=== PATIENT | male | born 1955 ===

== ENCOUNTER 2017-08-26 11:49 | Inpatient (IN) | payer BC ==
[2017-08-26 12:52] LABS: BASO # 0.1 K/uL (0.0-0.2); BASO % 1.2 % (0.0-2.0); EOS % 23.9 % (0.0-4.0); LYMPH # 1.1 K/uL (1.0-4.3); LYMPH % 13.2 % (20.0-40.0); MEAN CELL VOLUME 90.5 fl (80.0-94.0); MEAN CORPUSCULAR HEMOGLOBIN 30.3 pg (27.0-31.0); MEAN CORPUSCULAR HGB CONC 33.5 g/dL (33.0-37.0); MEAN PLATELET VOLUME 8.2 fl (7.2-11.7); MONO # 0.3 K/uL (0.0-0.8); MONO % 3.9 % (0.0-10.0); NEUT # 4.8 K/uL (1.8-7.0); NEUT % 57.8 % (50.0-75.0); PLATELET COUNT 260 K/uL (130-400); RBC 4.61 Mil/uL (4.40-5.90); RED CELL DISTRIBUTION WIDTH 13.9 % (11.5-14.5); WHITE BLOOD COUNT 8.3 K/uL (4.8-10.8)
[2017-08-26 13:04] LABS: ALB/GLOB RATIO 1.1 (1.0-2.1); ALBUMIN 3.8 g/dL (3.5-5.0); ALT/SGPT 32 U/L (21-72); AST/SGOT 27 U/L (17-59); BLOOD UREA NITROGEN 25 mg/dl (9-20); GFR AFRICAN-AMERICAN 57; GFR NON-AFRICAN AMERICAN 47
[2017-08-26 14:00] LABS: BANDS 1 % (0-2); BASOPHIL 1 % (0-2); EOSINOPHIL 26 % (0-7); LYMPHOCYTE 10 % (20-50); MONOCYTE 3 % (0-10); NEUTROPHIL 59 % (42-75); PLATELET ESTIMATE NORMAL (NORMAL); TOTAL CELLS COUNTED 100
--- NOTE | 2017-08-26 14:11 | CT ---
PROCEDURE: CT HEAD WITHOUT CONTRAST. HISTORY: syncope COMPARISON: None available. TECHNIQUE: Axial computed tomography images were obtained through the head/brain without intravenous contrast. Radiation dose: Total exam DLP = 835.36 mGy-cm. This CT exam was performed using one or more of the following dose reduction techniques: Automated exposure control, adjustment of the mA and/or kV according to patient size, and/or use of iterative reconstruction technique. FINDINGS: HEMORRHAGE: No intracranial hemorrhage. BRAIN: No mass effect or edema. No significant atrophy. Mild patchy periventricular and deep white matter lucency consistent with microvascular white matter ischemic change. No evidence of acute infarct. VENTRICLES: Unremarkable. No hydrocephalus. CALVARIUM: Unremarkable. PARANASAL SINUSES: Unremarkable as visualized. No significant inflammatory changes. MASTOID AIR CELLS: Unremarkable as visualized. No inflammatory changes. OTHER FINDINGS: None. IMPRESSION: No intracranial mass, hemorrhage or evidence of acute infarct. Mild chronic white matter ischemic change.
--- NOTE | 2017-08-26 14:39 | ED PDOC ---
Syncope/Near Syncope/Dizziness Time Seen by Provider: 08/26/17 12:27 Chief Complaint (Nursing): Syncope Chief Complaint (Provider): Syncope History Per: Patient History/Exam Limitations: no limitations Onset/Duration Of Symptoms: Days (08/26/17) Current Symptoms Are (Timing): Better Number Of Syncopal Episodes: 1 Additional Complaint(s): 62 year old male with a past medical history of hypertension presents to the ED with son complaining for syncope episode at home. Son states he heard a thump in the kitchen and saw the patient passed out for approximately one minute. Reports the patients eyes were open but patient was not responding and had bit his tongue. Patient states after taking blood pressure medication, he felt dizzy. Denies shortness of breath. PMD: Alissa Mejia MD Past Medical History Reviewed: Historical Data, Nursing Documentation, Vital Signs Vital Signs: Last Vital Signs Temp 98.1 F 08/26/17 11:58 Pulse 56 L 08/26/17 11:58 Resp 18 08/26/17 11:58 BP 128/81 08/26/17 11:58 Pulse Ox 99 08/26/17 11:58 - Medical History PMH: HTN, Hypercholesterolemia - Family History Family History: States: Unknown Family Hx - Home Medications Home Medications: Ambulatory Orders Medication Instructions Recorded amLODIPine [Norvasc] 10 mg PO DAILY 08/26/17 - Allergies Allergies/Adverse Reactions: Allergies Allergy/AdvReac Type Severity Reaction Status Date / Time No Known Allergies Allergy Verified 08/26/17 11:58 Review of Systems ROS Statement: Except As Marked, All Systems Reviewed And Found Negative Musculoskeletal: Positive for: Neck Pain Neurological: Positive for: Dizziness Physical Exam - Reviewed Nursing Documentation Reviewed: Yes Vital Signs Reviewed: Yes - Physical Exam Appears: Positive for: Well, Non-toxic, No Acute Distress Head Exam: Positive for: ATRAUMATIC, NORMAL INSPECTION, NORMOCEPHALIC Skin: Positive for: Normal Color, Warm, Dry Eye Exam: Positive for: EOMI, Normal appearance, PERRL ENT: Positive for: Normal ENT Inspection Neck: Positive for: Normal, Painless ROM, Supple. Negative for: Decreased ROM Cardiovascular/Chest: Positive for: Regular Rate, Rhythm. Negative for: Murmur Respiratory: Positive for: Normal Breath Sounds. Negative for: Decreased Breath Sounds, Accessory Muscle Use, Respiratory Distress Gastrointestinal/Abdominal: Positive for: Normal Exam, Bowel Sounds, Soft. Negative for: Tenderness, Guarding, Rebound Back: Positive for: Normal Inspection. Negative for: L CVA Tenderness, R CVA Tenderness Extremity: Positive for: Normal ROM. Negative for: Tenderness, Pedal Edema, Deformity Neurologic/Psych: Positive for: Alert, Oriented (x3). Negative for: Motor/ Sensory Deficits - Laboratory Results Result Diagrams: 08/26/17 12:35 08/26/17 12:35 - ECG ECG: Positive for: Interpreted By Me, Viewed By Me ECG Rhythm: Positive for: Sinus Bradycardia, Right Bundle Branch Block Rate: 56 O2 Sat by Pulse Oximetry: 99 (RA) Pulse Ox Interpretation: Normal Medical Decision Making Medical Decision Making: Time: 1235 Initial Plan: --Head w/o Contrast [CT] --CMP --Troponin I --CBC w/ Differential --Reevaluation EKG results demonstrate 56bpm, right bundle branch block, and bradycardia Time:1409 PROCEDURE: CT HEAD WITHOUT CONTRAST. FINDINGS: HEMORRHAGE: No intracranial hemorrhage. BRAIN: No mass effect or edema. No significant atrophy. Mild patchy periventricular and deep white matter lucency consistent with microvascular white matter ischemic change. No evidence of acute infarct. VENTRICLES: Unremarkable. No hydrocephalus. CALVARIUM: Unremarkable. PARANASAL SINUSES: Unremarkable as visualized. No significant inflammatory changes. MASTOID AIR CELLS: Unremarkable as visualized. No inflammatory changes. OTHER FINDINGS: None. IMPRESSION: No intracranial mass, hemorrhage or evidence of acute infarct. Mild chronic white matter ischemic change. Time: [address] Wetzel and Dr. Salomon's patient admitted to Dr. Wetzel. Time: 163 --Chest x-ray FINDINGS: LUNGS: No active pulmonary disease. PLEURA: No significant pleural effusion identified, no pneumothorax apparent. CARDIOVASCULAR: Normal. OSSEOUS STRUCTURES: Thoracic spondylosis. Bilateral shoulder arthrosis. VISUALIZED UPPER ABDOMEN: Normal. OTHER FINDINGS: None. IMPRESSION: No active disease. Scribe Attestation: Documented by Terell Baeza, acting as a scribe for Simone Bashir MD Provider Scribe Attestation: All medical record entries made by the Scribe were at my direction and personally dictated by me. I have reviewed the chart and agree that the record accurately reflects my personal performance of the history, physical exam, medical decision making, and the department course for this patient. I have also personally directed, reviewed, and agree with the discharge instructions and disposition. Disposition - Patient ED Disposition Is Patient to be Admitted: Yes - Disposition Disposition Time: 16:03 Condition: STABLE
--- NOTE | 2017-08-26 16:34 | RAD ---
HISTORY: syncope COMPARISON: No prior. FINDINGS: LUNGS: No active pulmonary disease. PLEURA: No significant pleural effusion identified, no pneumothorax apparent. CARDIOVASCULAR: Normal. OSSEOUS STRUCTURES: Thoracic spondylosis. Bilateral shoulder arthrosis. VISUALIZED UPPER ABDOMEN: Normal. OTHER FINDINGS: None. IMPRESSION: No active disease.
[2017-08-27 06:45] LABS: HEMOGLOBIN 14.2 g/dL (12.0-18.0); MEAN CELL VOLUME 89.1 fl (80.0-94.0); MEAN CORPUSCULAR HEMOGLOBIN 30.3 pg (27.0-31.0); MEAN CORPUSCULAR HGB CONC 33.9 g/dL (33.0-37.0); RBC 4.69 Mil/uL (4.40-5.90); RED CELL DISTRIBUTION WIDTH 13.8 % (11.5-14.5); WHITE BLOOD COUNT 8.8 K/uL (4.8-10.8)
[2017-08-27 06:58] LABS: ALBUMIN 3.7 g/dL (3.5-5.0)
[2017-08-27 07:09] LABS: T4 6.11 ug/dl (5.5-11.0)
--- NOTE | 2017-08-27 07:11 | CP.PCM.CON ---
History of Present Illness - History of Present Illness History of Present Illness: Consultation for evaluation of syncope HPI: 62-year-old male with history of hypertension who presented with complaints of episode of near syncope after taking his blood pressure medications according to the patient he has noted to have a similar episode in the past patient took his blood pressure blood pressure medication early in the morning and 45 minutes later while he was washing his dishes started feeling dizzy had a dark vision and passed out. Apparently he bit his tongue had similar episodes in the past and attributed to his secondary to over medications. Prior to episode of syncope he denied having any prodromal symptoms denies any chest pain shortness of breath palpitations. Past medical history as stated above family history noncontributory social history denies history of smoking alcohol or illicit drug use allergies no known drug allergies. Review of Systems - Review of Systems Systems not reviewed;Unavailable: Acuity of Condition - Constitutional Constitutional: As Per HPI - EENT Eyes: As Per HPI Ears: As Per HPI Nose/Mouth/Throat: As Per HPI - Cardiovascular Cardiovascular: As Per HPI - Respiratory Respiratory: As Per HPI - Gastrointestinal Gastrointestinal: As Per HPI - Genitourinary Genitourinary: As Per HPI - Reproductive: Male Reproductive:Male: As Per HPI - Musculoskeletal Musculoskeletal: As Per HPI - Integumentary Integumentary: As Per HPI - Neurological Neurological: As Per HPI - Psychiatric Psychiatric: As Per HPI - Endocrine Endocrine: As Per HPI - Hematologic/Lymphatic Hematologic: As Per HPI Past Patient History - Past Medical History & Family History Past Medical History?: Yes - Past Social History Smoking Status: Former Smoker - CARDIAC Hx Hypercholesterolemia: Yes Hx Hypertension: Yes - NEUROLOGICAL Hx Syncope: Yes (Today) - HEMATOLOGICAL/ONCOLOGICAL Hx AIDS: No Hx Human Immunodeficiency Virus (HIV): No - MUSCULOSKELETAL/RHEUMATOLOGICAL Hx Arthritis: Yes Hx Falls: Yes - PSYCHIATRIC Hx Substance Use: No - SURGICAL HISTORY Hx Arthroscopy: Yes - ANESTHESIA Hx Anesthesia: Yes Hx Anesthesia Reactions: No Hx Malignant Hyperthermia: No Meds Allergies/Adverse Reactions: Allergies Allergy/AdvReac Type Severity Reaction Status Date / Time No Known Allergies Allergy Verified 08/26/17 11:58 - Medications Medications: Current Medications Amlodipine Besylate (Norvasc) 10 mg PO DAILY [facility] Aspirin (Aspirin Chewable) 81 mg PO DAILY [facility] Atorvastatin Calcium (Lipitor) 40 mg PO DAILY [facility] Carvedilol (Coreg) 25 mg PO Q12 [facility] Last Admin: 08/26/17 20:57 Dose: 25 mg Enoxaparin Sodium (Lovenox) 40 mg SC DAILY [facility] PRN Reason: Protocol Physical Exam - Constitutional Appears: Well - Head Exam Head Exam: ATRAUMATIC, NORMAL INSPECTION, NORMOCEPHALIC - Eye Exam Eye Exam: EOMI, Normal appearance, PERRL Pupil Exam: NORMAL ACCOMODATION, PERRL - ENT Exam ENT Exam: Mucous Membranes Moist, Normal Exam - Neck Exam Neck exam: Positive for: Normal Inspection - Respiratory Exam Respiratory Exam: Clear to Auscultation Bilateral, NORMAL BREATHING PATTERN - Cardiovascular Exam Cardiovascular Exam: REGULAR RHYTHM - GI/Abdominal Exam GI & Abdominal Exam: Normal Bowel Sounds, Soft. absent: Tenderness - Extremities Exam Extremities exam: Positive for: normal inspection - Back Exam Back exam: NORMAL INSPECTION - Neurological Exam Neurological exam: Alert, CN II-XII Intact, Normal Gait, Oriented x3, Reflexes Normal - Psychiatric Exam Psychiatric exam: Normal Affect, Normal Mood - Skin Skin Exam: Dry, Intact, Normal Color, Warm Results - Vital Signs Recent Vital Signs: Last Vital Signs Temp 98.6 F 08/27/17 05:00 Pulse 57 L 08/27/17 05:00 Resp 18 08/27/17 05:00 BP 176/96 H 08/27/17 05:00 Pulse Ox 98 08/27/17 05:00 - Labs Result Diagrams: 08/28/17 04:01 08/28/17 04:01 Labs: Laboratory Results - last 24 hr 08/26/17 08/26/17 08/26/17 12:17 12:35 12:35 WBC 8.3 RBC 4.61 Hgb 14.0 Hct 41.7 MCV 90.5 MCH 30.3 MCHC 33.5 RDW 13.9 Plt Count 260 MPV 8.2 Neut % (Auto) 57.8 Lymph % (Auto) 13.2 L [place] % (Auto) 3.9 Eos % (Auto) 23.9 H Baso % (Auto) 1.2 Neut # (Auto) 4.8 Lymph # (Auto) 1.1 [place] # (Auto) 0.3 Eos # (Auto) 2.0 H Baso # (Auto) 0.1 Neutrophils % (Manual) 59 Band Neutrophils % 1 Lymphocytes % (Manual) 10 L Monocytes % (Manual) 3 Eosinophils % (Manual) 26 H Basophils % (Manual) 1 Platelet Estimate Normal RBC Morphology Normal Sodium 141 Potassium 3.5 L Chloride 104 Carbon Dioxide 21 L Anion Gap 20 BUN 25 H Creatinine 1.5 Est GFR ( Amer) 57 Est GFR (Non-Af Amer) 47 POC Glucose (mg/dL) 160 H Random Glucose 129 H Calcium 9.0 Total Bilirubin 0.6 AST 27 ALT 32 Alkaline Phosphatase 97 Troponin I < 0.0120 Total Protein 7.3 Albumin 3.8 Globulin 3.5 Albumin/Globulin Ratio 1.1 Triglycerides Cholesterol LDL Cholesterol Direct HDL Cholesterol Thyroxine (T4) 08/27/17 08/27/17 05:30 05:30 WBC 8.8 RBC 4.69 Hgb 14.2 Hct 41.8 MCV 89.1 MCH 30.3 MCHC 33.9 RDW 13.8 Plt Count 255 MPV Neut % (Auto) Lymph % (Auto) [place] % (Auto) Eos % (Auto) Baso % (Auto) Neut # (Auto) Lymph # (Auto) [place] # (Auto) Eos # (Auto) Baso # (Auto) Neutrophils % (Manual) Band Neutrophils % Lymphocytes % (Manual) Monocytes % (Manual) Eosinophils % (Manual) Basophils % (Manual) Platelet Estimate RBC Morphology Sodium 141 Potassium 3.4 L Chloride 102 Carbon Dioxide 26 Anion Gap 16 BUN 27 H Creatinine 1.6 H Est GFR ( Amer) 53 Est GFR (Non-Af Amer) 44 POC Glucose (mg/dL) Random Glucose 94 Calcium 9.0 Total Bilirubin 0.5 AST 24 ALT 32 Alkaline Phosphatase 101 Troponin I Total Protein 7.3 Albumin 3.7 Globulin 3.6 Albumin/Globulin Ratio 1.0 Triglycerides 148 Cholesterol 238 H LDL Cholesterol Direct 168 H HDL Cholesterol 30 Thyroxine (T4) 6.11 Assessment & Plan (1) Syncope Assessment and Plan: Echo cardotids telemetry JACKIE etiology ? vasovagal vs. med induced Status: Acute
[2017-08-27 07:23] LABS: T3 0.86 nmol/L (1.49-2.60)
--- NOTE | 2017-08-27 08:23 | CP.PCM.HP ---
History of Present Illness - History of Present Illness History of Present Illness: 62 yo, m , PMhx/o HTN, HLD presents c/o syncope at home. Patient report he took his BP medications early 9 am and about 45 min after while he was doing the dishes in the kitchen, he sudden started feeling dizziness, dark vision and passed out. Syncope witnessed by his son, it lasted about 1 min. Reports the patients eyes were open but patient was not responding and had bit his tongue. Patient denies subsequent weakness, slurred speech, facial palsy, confusion, seizure activity, sphincter incontinence, somnolence. He denies prior to syncope , palpitation, chest pain, SOB, vomiting, diarrhea, dehydration. Reports similar events in the past, but not syncope before. Reports hx/o anxiety, no emotional distress related with syncope. Does not remember BP medications he is taking. Patient seen and examined with Dr Wetzel. Patient noted with uncontrolled BP. Asymptomatic. Amlodipine increased to 10 mg daily PMD: Alissa Mejia MD Present on Admission - Present on Admission Any Indicators Present on Admission: No History of DVT/PE: No History of Uncontrolled Diabetes: No Urinary Catheter: No Review of Systems - Review of Systems All systems: reviewed and no additional remarkable complaints except - Cardiovascular Cardiovascular: As Per HPI - Neurological Neurological: Dizziness Past Patient History - Past Medical History & Family History Past Medical History?: Yes - Past Social History Smoking Status: Former Smoker - CARDIAC Hx Hypercholesterolemia: Yes Hx Hypertension: Yes - NEUROLOGICAL Hx Syncope: Yes (Today) - HEMATOLOGICAL/ONCOLOGICAL Hx AIDS: No Hx Human Immunodeficiency Virus (HIV): No - MUSCULOSKELETAL/RHEUMATOLOGICAL Hx Arthritis: Yes Hx Falls: Yes - PSYCHIATRIC Hx Substance Use: No - SURGICAL HISTORY Hx Arthroscopy: Yes - ANESTHESIA Hx Anesthesia: Yes Hx Anesthesia Reactions: No Hx Malignant Hyperthermia: No Meds Allergies/Adverse Reactions: Allergies Allergy/AdvReac Type Severity Reaction Status Date / Time No Known Allergies Allergy Verified 08/26/17 11:58 Physical Exam - Constitutional Appears: Non-toxic, No Acute Distress - Head Exam Head Exam: ATRAUMATIC, NORMOCEPHALIC - Eye Exam Eye Exam: Normal appearance - ENT Exam ENT Exam: Mucous Membranes Moist - Respiratory Exam Respiratory Exam: Clear to Auscultation Bilateral. absent: Rales, Rhonchi, Wheezes - Cardiovascular Exam Cardiovascular Exam: REGULAR RHYTHM, +S1, +S2 - GI/Abdominal Exam GI & Abdominal Exam: Normal Bowel Sounds, Soft. absent: Tenderness - Extremities Exam Extremities exam: Positive for: normal inspection. Negative for: pedal edema - Back Exam Back exam: NORMAL INSPECTION - Neurological Exam Neurological exam: Alert, Oriented x3 - Psychiatric Exam Psychiatric exam: Normal Affect, Normal Mood - Skin Skin Exam: Intact Results - Vital Signs Recent Vital Signs: Last Vital Signs Temp 97.6 F 08/27/17 07:35 Pulse 54 L 08/27/17 08:10 Resp 18 08/27/17 07:35 BP 186/95 H 08/27/17 08:10 Pulse Ox 97 08/27/17 07:35 - Labs Result Diagrams: 08/27/17 05:30 08/27/17 05:30 Labs: Laboratory Results - last 24 hr 08/26/17 08/26/17 08/26/17 12:17 12:35 12:35 WBC 8.3 RBC 4.61 Hgb 14.0 Hct 41.7 MCV 90.5 MCH 30.3 MCHC 33.5 RDW 13.9 Plt Count 260 MPV 8.2 Neut % (Auto) 57.8 Lymph % (Auto) 13.2 L [place] % (Auto) 3.9 Eos % (Auto) 23.9 H Baso % (Auto) 1.2 Neut # (Auto) 4.8 Lymph # (Auto) 1.1 [place] # (Auto) 0.3 Eos # (Auto) 2.0 H Baso # (Auto) 0.1 Neutrophils % (Manual) 59 Band Neutrophils % 1 Lymphocytes % (Manual) 10 L Monocytes % (Manual) 3 Eosinophils % (Manual) 26 H Basophils % (Manual) 1 Platelet Estimate Normal RBC Morphology Normal Sodium 141 Potassium 3.5 L Chloride 104 Carbon Dioxide 21 L Anion Gap 20 BUN 25 H Creatinine 1.5 Est GFR ( Amer) 57 Est GFR (Non-Af Amer) 47 POC Glucose (mg/dL) 160 H Random Glucose 129 H Calcium 9.0 Total Bilirubin 0.6 AST 27 ALT 32 Alkaline Phosphatase 97 Troponin I < 0.0120 Total Protein 7.3 Albumin 3.8 Globulin 3.5 Albumin/Globulin Ratio 1.1 Triglycerides Cholesterol LDL Cholesterol Direct HDL Cholesterol Vitamin B12 Thyroxine (T4) Total T3 TSH 3rd Generation 08/27/17 08/27/17 05:30 05:30 WBC 8.8 RBC 4.69 Hgb 14.2 Hct 41.8 MCV 89.1 MCH 30.3 MCHC 33.9 RDW 13.8 Plt Count 255 MPV Neut % (Auto) Lymph % (Auto) [place] % (Auto) Eos % (Auto) Baso % (Auto) Neut # (Auto) Lymph # (Auto) [place] # (Auto) Eos # (Auto) Baso # (Auto) Neutrophils % (Manual) Band Neutrophils % Lymphocytes % (Manual) Monocytes % (Manual) Eosinophils % (Manual) Basophils % (Manual) Platelet Estimate RBC Morphology Sodium 141 Potassium 3.4 L Chloride 102 Carbon Dioxide 26 Anion Gap 16 BUN 27 H Creatinine 1.6 H Est GFR ( Amer) 53 Est GFR (Non-Af Amer) 44 POC Glucose (mg/dL) Random Glucose 94 Calcium 9.0 Total Bilirubin 0.5 AST 24 ALT 32 Alkaline Phosphatase 101 Troponin I Total Protein 7.3 Albumin 3.7 Globulin 3.6 Albumin/Globulin Ratio 1.0 Triglycerides 148 Cholesterol 238 H LDL Cholesterol Direct 168 H HDL Cholesterol 30 Vitamin B12 527 Thyroxine (T4) 6.11 Total T3 0.860 L TSH 3rd Generation 1.82 Assessment & Plan - Assessment and Plan (Free Text) Plan: Assessment/Plan 1) Syncope May be secondary o BP medications side effects and dehydration -EKG: Sinus bradycardia, RBBB, T wave neg may be 2/2 RBBB vs CAD Cardiology consult appreciated -f/u Echo, Carotid US -CT head: no intracranial hemorrhage. Mild chronic white matter ischemic changes. -neuro consult suggested -trop x 1 neg. g/u trop 2) Sinus bradycardia -may be related to BP medications side effects -TSH normal 3) Hypokalemia Mild -kcl 20 meq -f/u cMP 4) HTN -uncontrolled -hold hctz due to hypokalemia 5) HLD -uncontrolled -lipitor started 6) DVT Prophylaxis Lovenox 40 mg sc daily
[2017-08-27] MEDS: Enoxaparin 40 mg Syringe SC SCH (08:35)
[2017-08-27] MEDS ORDERED: HCTZ/Losartan 12.5/50 Tab PO SCH (09:00)
[2017-08-27] MEDS ORDERED: Potassium Chloride 20 mEq ER Tab PO ONE (09:23)
[2017-08-27] MEDS ORDERED: Sodium Chloride 0.9% 1,000 ML IV SCH (11:45)
--- NOTE | 2017-08-27 12:40 | US ---
PROCEDURE: Duplex ultrasound of the carotid and vertebral arteries. HISTORY: syncope COMPARISON: None available. TECHNIQUE: Grayscale and duplex Doppler evaluation of the cervical carotid and vertebral arteries were performed. The common carotid, carotid bifurcations and cervical ICA and proximal ECA were evaluated. The vertebral arteries were evaluated for gross patency and direction. FINDINGS: RIGHT CAROTID ARTERIES: Common Carotid Artery: Intimal thickening is present Maximal flow velocity of 80.7 cm/s. Carotid Bifurcation: Intimal thickening is present Internal Carotid Artery:Heterogeneous plaque formation. Maximal flow velocity of 65.1 cm/s. External Carotid Artery (proximal branches): Normal. Maximal flow velocity of 84.6 cm/s. ICA/CCA Ratio: 1.0 LEFT CAROTID ARTERIES: Common Carotid Artery: Intimal thickening is present Maximal flow velocity of 172.7 centimeter/second proximal CCA. Distal CCA 84.5 cm/s. Carotid Bifurcation: Densely calcified plaque in the carotid bulb Internal Carotid Artery:Heterogeneous plaque formation. Maximal flow velocity of 68.7 cm/s. External Carotid Artery (proximal branches): Normal. Maximal flow velocity of 109.5 cm/s. ICA/CCA Ratio: VERTEBRAL ARTERIES: Right Vertebral Artery: Patent. Antegrade flow. Left Vertebral Artery: Patent. Antegrade flow. OTHER FINDINGS: None. IMPRESSION: Right ICA degree of stenosis: Less than 50% Left ICA degree of stenosis: Less than 50% Reference Internal Carotid Artery (ICA) Peak Systolic Velocity (PSV) for above: 1. Less than 50% stenosis less than 125 cm/s peak systolic velocity 2. 50-69% stenosis 125-230cm/s peak systolic velocity 3. Greater than 70% but less than near occlusion greater than 230 cm/s peak systolic velocity
[2017-08-27] MEDS ORDERED: Iodixanol 320 MG/ML 100 ML BOTTLE IV ONE (13:27)
[2017-08-27] MEDS ORDERED: Sodium Chloride 0.9% 100 ML ONE (13:28)
--- NOTE | 2017-08-27 15:56 | CP.PCM.CON ---
History of Present Illness - History of Present Illness History of Present Illness: 62 yr old male who came to hospital for dizziness and spots in her eyes, and has had similar issues in the past. He has hypertension for many years, and recently had his bp meds changed. He has a pmh of htn, hld, and took his meds at 9 am and 45 minutes later, he started to feel very dizzy, with darkening of vision, and passed. His son witnessed the spell, lasting about one minute, and the patients eyes were open but was not responding and bit his tongue. He does not remember the name of his blood pressure meds. PMHPSH: as above FHSH: no tobacco, no etoh. All: nkda. on exam: normal neurolgical exam gait normal. Past Patient History - Past Medical History & Family History Past Medical History?: Yes - Past Social History Smoking Status: Former Smoker - CARDIAC Hx Hypercholesterolemia: Yes Hx Hypertension: Yes - NEUROLOGICAL Hx Syncope: Yes (Today) - HEMATOLOGICAL/ONCOLOGICAL Hx AIDS: No Hx Human Immunodeficiency Virus (HIV): No - MUSCULOSKELETAL/RHEUMATOLOGICAL Hx Arthritis: Yes Hx Falls: Yes - PSYCHIATRIC Hx Substance Use: No - SURGICAL HISTORY Hx Arthroscopy: Yes - ANESTHESIA Hx Anesthesia: Yes Hx Anesthesia Reactions: No Hx Malignant Hyperthermia: No Meds Allergies/Adverse Reactions: Allergies Allergy/AdvReac Type Severity Reaction Status Date / Time No Known Allergies Allergy Verified 08/26/17 11:58 - Medications Medications: Current Medications Amlodipine Besylate (Norvasc) 10 mg PO DAILY [facility] Last Admin: 08/27/17 08:35 Dose: 10 mg Aspirin (Aspirin Chewable) 81 mg PO DAILY [facility] Last Admin: 08/27/17 08:36 Dose: 81 mg Atorvastatin Calcium (Lipitor) 40 mg PO DAILY [facility] Last Admin: 08/27/17 08:35 Dose: 40 mg Carvedilol (Coreg) 25 mg PO Q12 [facility] Last Admin: 08/27/17 08:10 Dose: Not Given Enoxaparin Sodium (Lovenox) 40 mg SC DAILY [facility] PRN Reason: Protocol Last Admin: 08/27/17 08:35 Dose: 40 mg Sodium Chloride (Sodium Chloride 0.9%) 1,000 mls @ 110 mls/hr IV .Q9H6M [facility] Stop: 08/28/17 11:36 Results - Vital Signs Recent Vital Signs: Last Vital Signs Temp 98.1 F 08/27/17 13:38 Pulse 64 08/27/17 13:38 Resp 18 08/27/17 13:38 BP 143/81 08/27/17 13:38 Pulse Ox 97 08/27/17 13:38 - Labs Result Diagrams: 08/27/17 05:30 08/27/17 05:30 Labs: Laboratory Results - last 24 hr 08/27/17 08/27/17 05:30 05:30 WBC 8.8 RBC 4.69 Hgb 14.2 Hct 41.8 MCV 89.1 MCH 30.3 MCHC 33.9 RDW 13.8 Plt Count 255 Sodium 141 Potassium 3.4 L Chloride 102 Carbon Dioxide 26 Anion Gap 16 BUN 27 H Creatinine 1.6 H Est GFR ( Amer) 53 Est GFR (Non-Af Amer) 44 Random Glucose 94 Calcium 9.0 Total Bilirubin 0.5 AST 24 ALT 32 Alkaline Phosphatase 101 Total Protein 7.3 Albumin 3.7 Globulin 3.6 Albumin/Globulin Ratio 1.0 Triglycerides 148 Cholesterol 238 H LDL Cholesterol Direct 168 H HDL Cholesterol 30 Vitamin B12 527 Thyroxine (T4) 6.11 Total T3 0.860 L TSH 3rd Generation 1.82 Assessment & Plan - Assessment and Plan (Free Text) Assessment: CTA --pending echo--pending ct head: normal. carotid ultrasound: less than 50% stenosis. 62 yr old male who has most likely has hypotension, not likely to have epilepsy. I feel that his hypertension is the root of this syncopal spell Dr. harrison
--- NOTE | 2017-08-27 16:52 | CT ---
PROCEDURE: CT Angiography of the Brain. HISTORY: Syncope COMPARISON: None available. TECHNIQUE: CT angiography of the intracranial and neck arteries was performed. Coronal and sagittal maximum intensity projection reformated images were generated. Contrast Dose: Visipaque 320, 95 cc Radiation dose:Total exam DLP = 2250.13 mGy-cm. This CT exam was performed using one or more of the following dose reduction techniques: Automated exposure control, adjustment of the mA and/or kV according to patient size, and/or use of iterative reconstruction technique. FINDINGS: INTERNAL CEREBRAL ARTERIES: The skull base, petrous, cavernous and supraclinoid segments are bilaterally widely patent. Limited bilateral cavernous ICA atherosclerosis is identified. ANTERIOR CEREBRAL ARTERIES: Unremarkable. A1 and A2 segments are widely patent. Smaller distal branches unremarkable, as visualized. MIDDLE CEREBRAL ARTERIES: Unremarkable. M1 and M2 segments are widely patent. Perisylvian branches grossly symmetric. POSTERIOR CIRCULATION: Basilar Artery: Unremarkable. Distal Vertebral Arteries: Left dominant vertebrobasilar circulation is identified with bilaterally patent distal vertebral arteries noted. Posterior Cerebral Arteries: Unremarkable. Posterior Inferior Cerebellar Arteries: Unremarkable. NECK CTA: Common Carotid arteries: The bilateral common carotid appear widely patent from their origins to their bifurcations with no significant stenosis appreciated. No evidence to suggest common carotid artery dissection. Mild atherosclerotic plaques identified in the bilateral carotid bulb regions Internal Carotid arteries: No significant stenosis is appreciated throughout the cervical internal carotid artery segments bilaterally and there is no evidence of dissection either. Limited atherosclerotic plaque is seen at the proximal left internal carotid artery. External Carotid arteries: Appear unremarkable bilaterally. Vertebral arteries: The bilateral vertebral arteries appear normal in caliber from their origins to their junction with the basilar artery. No significant stenosis or definite pattern of dissection. ANEURYSM/ VASCULAR MALFORMATIONS: None. OTHER FINDINGS: None. IMPRESSION: No significant stenosis and no occlusion is appreciated in the major intracranial and neck arterial circulation as discussed above. Limited atherosclerosis at bilateral ICA and carotid bulb segment as discussed above.
[2017-08-28 04:12] LABS: BASO # 0.1 K/uL (0.0-0.2); BASO % 0.6 % (0.0-2.0); EOS # 3.3 K/uL (0.0-0.7); EOS % 33.8 % (0.0-4.0); HEMOGLOBIN 14.5 g/dL (12.0-18.0); LYMPH # 1.9 K/uL (1.0-4.3); LYMPH % 18.9 % (20.0-40.0); MEAN CELL VOLUME 88.2 fl (80.0-94.0); MEAN CORPUSCULAR HEMOGLOBIN 30.5 pg (27.0-31.0); MEAN CORPUSCULAR HGB CONC 34.6 g/dL (33.0-37.0); MEAN PLATELET VOLUME 8.2 fl (7.2-11.7); MONO # 0.6 K/uL (0.0-0.8); NEUT % 40.7 % (50.0-75.0); PLATELET COUNT 242 K/uL (130-400); RBC 4.75 Mil/uL (4.40-5.90); RED CELL DISTRIBUTION WIDTH 13.8 % (11.5-14.5); WHITE BLOOD COUNT 9.9 K/uL (4.8-10.8)
[2017-08-28 06:27] LABS: EOSINOPHIL 31 % (0-7); LYMPHOCYTE 20 % (20-50); MONOCYTE 6 % (0-10); NEUTROPHIL 43 % (42-75); PLATELET ESTIMATE NORMAL (NORMAL); TOTAL CELLS COUNTED 100
[2017-08-28 07:09] LABS: ALBUMIN 3.6 g/dL (3.5-5.0); ALT/SGPT 28 U/L (21-72); AST/SGOT 24 U/L (17-59); BLOOD UREA NITROGEN 30 mg/dl (9-20); GFR AFRICAN-AMERICAN > 60; GFR NON-AFRICAN AMERICAN 51
[2017-08-28 08:15] VITALS: RESP 18
[2017-08-28] MEDS: Enoxaparin 40 mg Syringe SC SCH (09:39)
--- NOTE | 2017-08-28 10:01 | PN ---
DATE: 08/28/2017 SUBJECTIVE: The patient seen and examined. Interim events noted. Consults noted and appreciated. The patient remains in Progressive Care Unit on telemetry monitoring. The patient feels better. No chest pain and no shortness of breath. No dizziness and no loss of consciousness. PHYSICAL EXAMINATION: GENERAL: The patient is in no acute distress. VITAL SIGNS: Stable. HEART: S1 and S2 are normal and regular. LUNGS: Good bilateral air exchange. GASTROINTESTINAL: Abdomen is soft and nontender. EXTREMITIES: No edema and no calf swelling. No tenderness. No acute ischemia. CENTRAL NERVOUS SYSTEM: Exam is essentially unchanged. DIAGNOSTIC DATA: Available diagnostic data reviewed. Telemetry monitoring does not show significant arrhythmia. Carotid Doppler is unremarkable. ASSESSMENT AND PLAN: Overall, the patient's general medical condition is stable. Plan as ordered. Foreign Wetzel MD
--- NOTE | 2017-08-28 11:07 | CARD ---
APPROVED REPORT EXAM: Two-dimensional and M-mode echocardiogram with Doppler and color Doppler. Other Information Quality : AverageRhythm : NSR INDICATION Syncope 2D DIMENSIONS IVSd1.33 (0.7-1.1cm)LVDd3.41 (3.9-5.9cm) LVOT Diameter1.95 (1.8-2.4cm)PWd1.27 (0.7-1.1cm) IVSs1.73 (0.8-1.2cm)LVDs2.31 (2.5-4.0cm) FS (%) 32.3 %PWs1.71 (0.8-1.2cm) M-Mode DIMENSIONS Left Atrium (MM)2.81 (2.5-4.0cm)IVSd1.54 (0.7-1.1cm) Aortic Root3.03 (2.2-3.7cm)LVDd4.52 (4.0-5.6cm) Aortic Cusp Exc.1.71 (1.5-2.0cm)PWd1.43 (0.7-1.1cm) IVSs2.29 cmFS (%) 40 % LVDs2.70 (2.0-3.8cm)PWs1.85 cm Aortic Valve AoV Peak Znzwfzoh269.5cm/sAoV VTI30.6cmAO Peak GR.10mmHg LVOT Peak Ajcaxbep80.3cm/sLVOT VTI22.48cmAO Mean GR.5mmHg TAQUERIA (VMAX)0.82au0SIP (VTI)1.19cm2 Mitral Valve MV E Mwkhcxtf26.2cm/sMV DECEL [id number] A Nssfpupz28.0cm/s MV NVT54frZ/A ratio0.8MVA (PHT)2.29cm2 TDI Lateral E' Peak V9.86cm/sMedial E' Peak V5.87cm/sE/Lateral E'5.4 E/Medial E'9.1 Tricuspid Valve TR Peak Zlqdmdeu645ez/sRAP [id number] Peak Gr.11mmHg [id number] LEFT VENTRICLE The left ventricle is normal size. There is normal left ventricular wall thickness. The left ventricular function is normal. The left ventricular ejection fraction is within the normal range. The Ejection Fraction is 60-65%. There is normal LV segmental wall motion. The left ventricular diastolic function is normal. RIGHT VENTRICLE The right ventricle is normal size. The right ventricular systolic function is normal. ATRIA The left atrium size is normal. The right atrium size is normal. AORTIC VALVE The aortic valve is normal in structure. No aortic regurgitation is present. There is no aortic valvular stenosis. MITRAL VALVE The mitral valve is normal in structure. There is no mitral valve stenosis. There is no mitral valve regurgitation noted. TRICUSPID VALVE The tricuspid valve is normal in structure. There is no tricuspid valve regurgitation noted. There is no tricuspid valve stenosis. PULMONIC VALVE The pulmonary valve is normal in structure. There is no pulmonic valvular regurgitation. There is no pulmonic valvular stenosis. GREAT VESSELS The aortic root is normal in size. The IVC is normal in size and collapses >50% with inspiration. PERICARDIAL EFFUSION The pericardium appears normal. <Conclusion> The left ventricle is normal size. The left ventricular function is normal. The left ventricular ejection fraction is within the normal range. The Ejection Fraction is 60-65%.
[2017-08-28 12:06] VITALS: O2SAT 98
[2017-08-28 15:36] VITALS: BP 161/95; PULSE 62; TEMP 98.7
== END 2017-08-28 16:10 | disposition left against medical advice (07) | DRG 312 ==
LOC: H.ER 11:49 → H.ERHOLD 16:01 → H.TEL 17:12 → OBSVTOIN 08-27 13:48 → H.TEL 08-27 17:46
PROVIDERS: ADMIT Internal Medicine; ATTEND Internal Medicine
DX: R55 Syncope and collapse (principal); E86.0 Dehydration; E87.6 Hypokalemia; I10 Essential (primary) hypertension; Z87.891 Personal history of nicotine dependence; F41.9 Anxiety disorder, unspecified; M19.90 Unspecified osteoarthritis, unspecified site; Z79.899 Other long term (current) drug therapy; R00.1 Bradycardia, unspecified; E78.00 Pure hypercholesterolemia, unspecified; E78.5 Hyperlipidemia, unspecified